=== PATIENT | female | born 1970 | race Caucasian/White ===

== ENCOUNTER 2018-12-12 18:07 | Observation (INO) ==
[2018-12-12] MEDS ORDERED: Aspirin 81 MG TAB.CHEW PO ONE (18:24)
[2018-12-12] MEDS ORDERED: Nitroglycerin 0.4 MG TAB.SUBL SL PRN (18:25)
[2018-12-12 19:20] LABS: Basophils # 0.1 K/mcL (0.0-0.2); Basophils % 1.1 %; Eosinophils # 0.5 K/mcL (0.0-0.6); Hematocrit 34.2 % (35.3-44.9); Immature Granulocytes % 0.3 % (0-4); Lymphocytes % 26.9 %; Mean Corpuscular HGB Conc 32.2 g/dL (31.6-35.5); Mean Corpuscular Hemoglobin 25.9 pg (28.0-33.3); Mean Corpuscular Volume 80.7 fL (83.0-100.0); Mean Platelet Volume 9.7 fL (9.4-12.4); Monocytes # 0.7 K/mcL (0.0-1.3); Monocytes % 9.8 %; Neutrophils # 4.2 K/mcL (1.6-8.9); Platelet Count 268 K/mcL (140-400); Red Blood Count 4.24 M/mcL (3.82-4.97); Red Cell Distribution Width 16.6 % (11.5-14.5); Segmented Neutrophils % 55.9 %; White Blood Count 7.5 K/mcL (4.3-11.1)
[2018-12-12 19:44] LABS: BUN/Creatinine Ratio 14 (6-26); Blood Urea Nitrogen 13 mg/dL (6-20); Calcium 9.1 mg/dL (8.6-10.3); Carbon Dioxide 27 mEq/L (23-29); Chloride 101 mEq/L (98-107); Glucose 81 mg/dL (70-105); Magnesium 1.8 mg/dL (1.6-2.6); Osmolality,Calculated 283 (280-300); Potassium 3.9 mEq/L (3.5-5.1); Sodium 137 mEq/L (136-145); eGFR For African Americans > 60 (> 60); eGFR For Non-African Americans > 60 (> 60)
[2018-12-12 19:48] LABS: Troponin I 0.04 ng/mL (< 0.04)
[2018-12-12] MEDS ORDERED: *HR* Heparin 5,000 UNIT/ML VIAL IVP ONE (19:58)
[2018-12-12] MEDS ORDERED: *HR* Heparin 5,000 UNIT/ML VIAL IVP PRN ×2 (19:58)
[2018-12-12] MEDS ORDERED: Heparin 25,000 UNIT/250 ML D5W 25,000 UNIT/250 ML IV.SOLN IVC SCH (20:00)
[2018-12-12 20:57] LABS: Heparin anti-factor XA UFH 0.04 IU/mL (0.30-0.70); INR 0.9; Prothrombin Time 9.8 Seconds (9.4-12.1)
[2018-12-12] MEDS ORDERED: Ondansetron 4 MG/2 ML VIAL IVP PRN (21:03)
[2018-12-12] MEDS ORDERED: Albuterol 2.5 MG/3 ML NEBULIZER IH PRN (21:09)
[2018-12-12] MEDS ORDERED: Ipratropium/Albuterol Neb 3 ML IH PRN (21:34)
[2018-12-13] MEDS: Pantoprazole 40 MG VIAL IVP SCH ×2 (03:30→16:59)
[2018-12-13 03:38] LABS: Basophils # 0.1 K/mcL (0.0-0.2); Eosinophils # 0.5 K/mcL (0.0-0.6); Eosinophils % 6.3 %; Hematocrit 34.6 % (35.3-44.9); Hemoglobin 11.2 g/dL (11.5-15.4); Immature Granulocytes % 0.1 % (0-4); Lymphocytes # 2.5 K/mcL (0.6-4.6); Lymphocytes % 32.7 %; Mean Corpuscular HGB Conc 32.4 g/dL (31.6-35.5); Mean Corpuscular Hemoglobin 26.4 pg (28.0-33.3); Mean Corpuscular Volume 81.4 fL (83.0-100.0); Mean Platelet Volume 9.6 fL (9.4-12.4); Monocytes # 0.8 K/mcL (0.0-1.3); Neutrophils # 3.9 K/mcL (1.6-8.9); Platelet Count 266 K/mcL (140-400); Red Blood Count 4.25 M/mcL (3.82-4.97); Red Cell Distribution Width 16.8 % (11.5-14.5); Segmented Neutrophils % 49.9 %; White Blood Count 7.8 K/mcL (4.3-11.1)
[2018-12-13 04:01] LABS: % Iron Saturation 4 % (15-50); Iron 22 mcg/dL (50-170); Transferrin 380 mg/dL (203-362)
[2018-12-13 04:02] LABS: BUN/Creatinine Ratio 21 (6-26); Blood Urea Nitrogen 15 mg/dL (6-20); Calcium 9.1 mg/dL (8.6-10.3); Carbon Dioxide 27 mEq/L (23-29); Chloride 104 mEq/L (98-107); Cholesterol 286 mg/dL (< 200); Glucose 95 mg/dL (70-105); HDL Cholesterol 96 mg/dL (40-59); LDL Cholesterol,Calculated 169 mg/dL (0-99); Osmolality,Calculated 285 (280-300); Potassium 3.8 mEq/L (3.5-5.1); Sodium 137 mEq/L (136-145); Triglycerides 103 mg/dL (< 150); eGFR For African Americans > 60 (> 60); eGFR For Non-African Americans > 60 (> 60)
[2018-12-13 04:30] LABS: Ferritin < 8 ng/mL (10-120)
[2018-12-13] MEDS: Aspirin 81 MG TAB.CHEW PO SCH (09:21)
[2018-12-13 09:27] LABS: Estimated Average Glucose 117 mg/dl
[2018-12-13] MEDS: *HR* Heparin 5,000 UNIT/ML VIAL SQ SCH (18:11)
[2018-12-14 05:13] LABS: BUN/Creatinine Ratio 18 (6-26); Blood Urea Nitrogen 11 mg/dL (6-20); Calcium 8.7 mg/dL (8.6-10.3); Carbon Dioxide 24 mEq/L (23-29); Chloride 105 mEq/L (98-107); Glucose 102 mg/dL (70-105); Osmolality,Calculated 282 (280-300); Potassium 3.7 mEq/L (3.5-5.1); Sodium 136 mEq/L (136-145); eGFR For African Americans > 60 (> 60); eGFR For Non-African Americans > 60 (> 60)
[2018-12-14 05:16] LABS: Troponin I 0.04 ng/mL (< 0.04)
[2018-12-14] MEDS: *HR* Heparin 5,000 UNIT/ML VIAL SQ SCH (05:34)
[2018-12-14] MEDS: Aspirin 81 MG TAB.CHEW PO SCH (08:52)
[2018-12-14] MEDS ORDERED: predniSONE 20 MG TABLET PO SCH (09:00)
[2018-12-14 10:16] VITALS: BP 112/71
== END 2018-12-14 11:12 | disposition home or self-care (01) ==
LOC: 3BNU 18:07 → EMEROOARM 18:07 → 3BNU 20:54
PROVIDERS: ADMIT Internal Medicine; ATTEND Internal Medicine